=== PATIENT | female | born 1975 | race Caucasian/White ===

== ENCOUNTER 2019-01-19 10:32 | Emergency (ER) | payer OTHER, BC ==
[~2019-01-19] VITALS: Ht 152.4 cm; Wt 89.4 kg
[~2019-01-19 10:32] MED LIST: ACETAMINOPHEN-1 EAC1 PO; AMITRIPTYLINE H25 M2 PO; CLONAZEPAM 1 MG1 M1 PO; ESTRADIOL 1 MG T1 M1 PO; LIPITOR10 MG PO; MEDROLDOSEPACK PO; NEURONTIN 300300 M1 PO; PROAIR HFA8.5 GM INH; PROMETHAZINE D480 ML PO; XANAX1 MG PO; ZPAK PO
[2019-01-19] MEDS ORDERED: DEPAKOTE 250MG250 M1 PO (10:54)
[2019-01-19] MEDS ORDERED: DEPAKOTE500 MG PO (10:55)
[2019-01-19] MEDS ORDERED: ESTRACE0.5 MG PO (10:55)
[2019-01-19] MEDS ORDERED: CLONAZEPAM 0.50.5 M1 PO (10:56)
[2019-01-19] MEDS ORDERED: TRAZODONE 150150 M1 PO (10:56)
[2019-01-19] MEDS ORDERED: FLEXERIL PO (10:57)
[2019-01-19] MEDS ORDERED: COMPAZINE10 MG PO (10:57)
[2019-01-19] MEDS ORDERED: BENADRYL25 MG PO (10:57)
[2019-01-19] MEDS ORDERED: LOPERAMIDE 2 MG2 M1 PO (10:58)
[2019-01-19] MEDS ORDERED: CYMBALTA30 MG PO (10:58)
[2019-01-19] MEDS ORDERED: ALEVE220 MG PO (10:58)
[2019-01-19] MEDS ORDERED: FISH OIL 1,001000 M2 PO (10:58)
[2019-01-19 11:50] LABS: URINE BILIRUBIN NEGATIVE (Negative); URINE BLOOD TRACE (Negative); URINE CLARITY CLEAR; URINE COLOR YELLOW; URINE GLUCOSE-RANDOM NEGATIVE (Negative); URINE KETONES NEGATIVE (Negative); URINE LEUKOCYTES-REFLEX NEGATIVE (Negative); URINE NITRITE-REFLEX NEGATIVE (Negative); URINE PROTEIN NEGATIVE (Negative); URINE UROBILINOGEN 0.2 E.U./dl (0.2-1.0)
[2019-01-19 11:53] LABS: ABSOLUTE BASOPHILS 0.1 thou/uL (0.0-0.2); ABSOLUTE EOSINOPHILS 0.1 thou/uL (0.0-0.7); ABSOLUTE LYMPHOCYTES 3.2 thou/uL (0.8-5.3); ABSOLUTE MONOCYTES 0.4 thou/uL (0.0-1.2); ABSOLUTE NEUTROPHILS 4.8 thou/uL (1.6-8.1); BASOPHILS 0.9 %; EOSINOPHILS 1.5 %; HEMATOCRIT 45.7 % (37.0-47.0); HEMOGLOBIN 15.6 gm/dL (12.0-15.0); LYMPHOCYTES 37.5 %; MCH 29.9 pg (26.0-34.0); MONOCYTES 4.3 %; MPV 10.1 fl. (7.2-11.1); NUCLEATED RBCS 0 /100WBC; PLATELET COUNT* 147 thou/uL (150-400); POLYS 55.8 %; WBC 8.6 thou/uL (4.0-11.0)
[2019-01-19 12:04] LABS: ALBUMIN 3.3 g/dL (3.4-5.0); CALCIUM 8.9 mg/dL (8.5-10.1); CREATININE 0.7 mg/dL (0.6-1.3); POTASSIUM 3.8 mmol/L (3.5-5.1); TOTAL BILIRUBIN 0.2 mg/dL (<0.1-1.0); TOTAL PROTEIN 7.2 g/dL (6.4-8.2)
[2019-01-19] MEDS ORDERED: MIRALAX17 GM PO (12:53)
[2019-01-19] MEDS ORDERED: ONDANSETRON HCL4 M2 PO (12:53)
[2019-01-19] MEDS ORDERED: CITRATE OF MAG296 ML PO (12:53)
[2019-01-19] MEDS ORDERED: NORCO 5-325 TA1 EACH PO (12:53)
[2019-01-19 13:25] VITALS: BP 130/76
== END 2019-01-19 13:27 | disposition home or self-care (01) ==
LOC: M.ERS 10:32
PROVIDERS: Physician Assistant
DX: R10.32 Left lower quadrant pain (principal); R42 Dizziness and giddiness; G43.909 Migraine, unspecified, not intractable, without status migrainosus; E78.00 Pure hypercholesterolemia, unspecified; F41.9 Anxiety disorder, unspecified; F32.9 Major depressive disorder, single episode, unspecified; F17.210 Nicotine dependence, cigarettes, uncomplicated; Z88.1 Allergy status to other antibiotic agents; Z88.8 Allergy status to other drugs, medicaments and biological substances; Z90.710 Acquired absence of both cervix and uterus

== ENCOUNTER 2019-07-01 12:08 | Emergency (ER) | payer OTHER, BC ==
[~2019-07-01] VITALS: Ht 162.6 cm; Wt 87.1 kg
[~2019-07-01 12:08] MED LIST changes: +ALEVE220 MG PO; +BENADRYL25 MG PO; +CITRATE OF MAG296 ML PO; +CLONAZEPAM 0.50.5 M1 PO; +COMPAZINE10 MG PO; +CYMBALTA30 MG PO; +DEPAKOTE 250MG250 M1 PO; +DEPAKOTE500 MG PO; +ESTRACE0.5 MG PO; +FISH OIL 1,001000 M2 PO; +FLEXERIL PO; +LOPERAMIDE 2 MG2 M1 PO; +MIRALAX17 GM PO; +NORCO 5-325 TA1 EACH PO; +ONDANSETRON HCL4 M2 PO; +TRAZODONE 150150 M1 PO
[2019-07-01 13:38] LABS: URINE BLOOD 1+ (Negative); URINE CLARITY CLEAR; URINE COLOR YELLOW; URINE GLUCOSE-RANDOM NEGATIVE (Negative); URINE KETONES NEGATIVE (Negative); URINE LEUKOCYTES-REFLEX NEGATIVE (Negative); URINE NITRITE-REFLEX NEGATIVE (Negative); URINE PROTEIN TRACE (Negative); URINE SPECIFIC GRAVITY 1.025 (1.005-1.030); URINE UROBILINOGEN 0.2 E.U./dl (0.2-1.0)
[2019-07-01 13:42] LABS: ABSOLUTE EOSINOPHILS 0.3 thou/uL (0.0-0.7); ABSOLUTE LYMPHOCYTES 1.4 thou/uL (0.8-5.3); ABSOLUTE MONOCYTES 0.4 thou/uL (0.0-1.2); ABSOLUTE NEUTROPHILS 4.2 thou/uL (1.6-8.1); BASOPHILS 0.6 %; EOSINOPHILS 4.5 %; HEMATOCRIT 46.6 % (37.0-47.0); HEMOGLOBIN 15.7 gm/dL (12.0-15.0); LYMPHOCYTES 22.1 %; MCHC 33.7 g/dL (28.0-37.0); MCV 86.1 fL (80.0-100.0); MPV 9.4 fl. (7.2-11.1); NUCLEATED RBCS 0 /100WBC; PLATELET COUNT* 168 thou/uL (150-400); POLYS 66.8 %; RBC 5.41 mil/uL (4.20-5.00); RDW-CV 15.6 % (10.5-14.5); WBC 6.3 thou/uL (4.0-11.0)
[2019-07-01 13:44] LABS: ICTOTEST (BILI CONFIRMATORY) Negative (Negative); URINE BILIRUBIN 1+ (Negative)
[2019-07-01 13:56] LABS: ANION GAP 7 mmol/L (7-16); BUN 11 mg/dL (7-18); CALCIUM 9.1 mg/dL (8.5-10.1); CHLORIDE 101 mmol/L (98-107); CO2 29 mmol/L (21-32); CREATININE 0.9 mg/dL (0.6-1.3); GLUCOSE 96 mg/dL (70-99); POTASSIUM 3.3 mmol/L (3.5-5.1); SODIUM 137 mmol/L (136-145)
[2019-07-01 14:01] LABS: BACTERIA-REFLEX >30 Many /HPF (None Seen); MUCUS 4-6 Moderate strn/LPF (None Seen); SQUAMOUS >10 Many /LPF (0-3)
[2019-07-01 14:02] LABS: CASTS None Seen /LPF (None Seen); CRYSTALS None Seen /LPF (None Seen); URINE RBC 0-2 Rare /HPF (0-2); URINE WBC-REFLEX 0-5 Rare /HPF (0-5)
[2019-07-01 14:07] LABS: ALBUMIN 3.4 g/dL (3.4-5.0); ALKALINE PHOSPHATASE 139 U/L (46-116); LIPASE 85 U/L (73-393); NT-PRO BRAIN NAT PEPTIDE 25 pg/mL (<300); SGOT 8 U/L (15-37); SGPT 21 U/L (30-65); TOTAL BILIRUBIN 0.5 mg/dL (<0.1-1.0); TOTAL PROTEIN 7.5 g/dL (6.4-8.2); TROPONIN-I LEVEL <0.06 ng/mL (<0.06)
--- NOTE | 2019-07-01 15:24 | EKG ---
[place] [address] ELECTROCARDIOGRAM REPORT Name: BARRIE BOOTHE Room: [facility]#: [id number] Admission: 07/01/19 Attend Phys: Discharge: Date of : 71 Report #: [id number] THIS REPORT FOR: //name// [facility] ED Test Date: 2019-07-01 Test Time: 12:18:44 Pat Name: BARRIE BOOTHE Department: Room: Gender: F Map Drafter: : 1975 Requested By: Andree Welch Order Number: [id number] MD: Vamsi Ragland Measurements Intervals [place] Rate: 76 P: 71 AR: 171 QRS: 71 QRSD: 95 T: 42 QT: 475 QTc: 535 Interpretive Statements Sinus rhythm Probable left atrial enlargement RSR' in V1 or V2, right VCD or RVH Borderline T abnormalities, anterior leads Prolonged QT interval No previous ECG available for comparison Electronically Signed On 07-01-2019 15:24:27 CDT by Vamsi Ragland [email or web address] <ELECTRONICALLY SIGNED> By: Vamsi Ragland MD, [facility] 07/01/19 1524 1218 17 Vamsi Ragland MD, [facility] /EPI
[2019-07-01] MEDS ORDERED: NORCO 5-325 TA1 EAC1 PO (16:22)
[2019-07-01] MEDS ORDERED: CIPRO500 MG PO (16:22)
[2019-07-01] MEDS ORDERED: FLAGYL500 M1 PO (16:22)
[2019-07-01] MEDS ORDERED: PHENERGAN 25 MG25 MG PO (16:22)
[2019-07-01 16:30] VITALS: BP 119/65
== END 2019-07-01 16:30 | disposition home or self-care (01) ==
LOC: M.ERS 12:08
PROVIDERS: Nurse Practitioner Family
DX: R19.7 Diarrhea, unspecified (principal); R11.2 Nausea with vomiting, unspecified; J06.9 Acute upper respiratory infection, unspecified; E66.9 Obesity, unspecified; R07.89 Other chest pain; G43.909 Migraine, unspecified, not intractable, without status migrainosus; E78.00 Pure hypercholesterolemia, unspecified; F41.9 Anxiety disorder, unspecified; F32.9 Major depressive disorder, single episode, unspecified; E78.5 Hyperlipidemia, unspecified; F17.210 Nicotine dependence, cigarettes, uncomplicated; Z90.710 Acquired absence of both cervix and uterus; Z88.8 Allergy status to other drugs, medicaments and biological substances; Z88.1 Allergy status to other antibiotic agents; Z68.33 Body mass index [BMI] 33.0-33.9, adult